=== PATIENT | female | born 2000 | race Caucasian/White ===

== ENCOUNTER 2020-10-31 06:41 | Emergency (ER) | payer OTHER | END 2020-10-31 09:02 | disposition home or self-care (01) | LOC: FER 06:41 | DX: S61.411A Laceration without foreign body of right hand, initial encounter (principal); F17.200 Nicotine dependence, unspecified, uncomplicated; Z23 Encounter for immunization; W25.XXXA Contact with sharp glass, initial encounter; Y92.009 Unspecified place in unspecified non-institutional (private) residence as the place of occurrence of the external cause | CPT/HCPCS: 73130; 90471; 90715 ==